=== PATIENT | female | born 1990 | race Caucasian/White ===

== ENCOUNTER 2017-01-05 23:40 | Emergency (ER) | payer OTHER ==
[~2017-01-05] VITALS: Ht 167.6 cm; Wt 54.4 kg
[~2017-01-05 23:40] MED LIST: ABILIFY20 MG PO; ADDERALL XR20 MG PO; ALBUTEROL0.09 MG/A2 IH; ALBUTEROL2.5 MG/0.5 INH; AMOXICILLIN500 M3 PO; ATARAX25 MG PO; BACTRIM DS 8001 TA1 PO; CEPHALEXIN500 M1 PO; CLARITIN10 MG PO; CLEOCIN HCL300 MG PO; CLINDAMYCIN HC300 MG PO; DARVOCET-N 1001 TA1 PO; DAYPRO600 M1 PO; DIFLUCAN150 MG PO; HYDROCODONE BIT1 T11 PO; KEFLEX500 MG PO; LEXAPRO10 MG PO; MEDROL DOSEPAK4 MG PO; MOTRIN400 MG PO; MOTRIN800 MG PO; NKHM; NORCO 325 MG-51 TAB PO; PEN-VK500 MG PO; PENICILLIN VK500 MG PO; PERIDEX 480 ML480 ML PO; PREDNISONE10 MG PO; ROBAXIN750 MG PO; ROBITUSSIN AC 110 ML PO; TRAMADOL HCL50 MG PO; ULTRAM50 MG PO; VENTOLIN H0.09 MG/AC INH; ZITHROMAX Z PA250 MG PO; ZOFRAN ODT4 MG SL
== END 2017-01-06 01:37 | disposition home or self-care (01) ==
LOC: ED 23:40
DX: S00.83XA Contusion of other part of head, initial encounter (principal); S30.0XXA Contusion of lower back and pelvis, initial encounter; S00.411A Abrasion of right ear, initial encounter; F17.200 Nicotine dependence, unspecified, uncomplicated; Z98.51 Tubal ligation status; Z79.899 Other long term (current) drug therapy; Y04.0XXA Assault by unarmed brawl or fight, initial encounter; Y93.89 Activity, other specified; Y92.89 Other specified places as the place of occurrence of the external cause; Y99.9 Unspecified external cause status

== ENCOUNTER 2017-08-27 14:20 | Emergency (ER) | payer OTHER ==
[~2017-08-27] VITALS: Ht 167.6 cm; Wt 54.4 kg
[2017-08-27 14:52] LABS: BASO # 0.1 10*3/uL (0.0-0.1); EOS # 0.2 10*3/uL (0.0-0.4); EOS % 2.1 % (1.0-4.0); HEMATOCRIT 42.5 % (37.0-47.0); LYMPH % 32.8 % (27.0-41.0); MEAN CELL VOLUME 94.4 fl (81.0-99.0); MEAN CORPUSCULAR HGB 31.1 pg (27.0-31.0); MEAN CORPUSCULAR HGB CONC 32.9 g/dl (33.0-37.0); MEAN PLATELET VOLUME 8.6 fl (9.6-12.3); MONO # 0.7 10*3/uL (0.1-1.0); MONO % 7.1 % (3.0-9.0); NEUT # 5.2 10*3/uL (2.3-7.9); NEUT % 56.8 % (47.0-73.0); PLATELET COUNT AUTOMATED 361 10*3/uL (130-400); RED CELL DISTRI WIDTH 12.6 % (0-14.5); WHITE BLOOD COUNT 9.2 10*3/uL (4.8-10.8)
[2017-08-27 15:02] LABS: BILIRUBIN NEGATIVE (NEGATIVE); BLOOD NEGATIVE (NEGATIVE); CLARITY SL CLOUDY (CLEAR); COLOR YELLOW (YELLOW); GLUCOSE NEGATIVE (NEGATIVE); KETONE TRACE (NEGATIVE); LEUKO ESTERASE NEGATIVE (NEGATIVE); NITRITE NEGATIVE (NEGATIVE); PH 5.5 (5.0-9.0); SPECIFIC GRAVITY >= 1.030 (1.005-1.030); UROBILINOGEN 0.2 E.U./dl (0.2-1.0)
[2017-08-27 15:06] LABS: ALBUMIN 4.3 gm/dl (3.1-4.5); ALKALINE PHOSPHATASE 69 U/L (45-117); BUN 13 mg/dl (7-24); CHLORIDE 106 mmol/L (98-107); CREATININE 0.92 mg/dL (0.55-1.02); POTASSIUM 3.8 mmol/L (3.5-5.1); SGOT/AST 9 IU/L (3-35); SGPT/ALT 16 U/L (12-78); SODIUM 140 mmol/L (136-145); TOTAL PROTEIN 8.2 gm/dL (6.4-8.2)
[2017-08-27] MEDS ORDERED: ZOFRAN ODT4 MG SL (15:18)
[2017-08-27 15:24] LABS: BACTERIA TRACE
== END 2017-08-27 15:32 | disposition home or self-care (01) ==
LOC: ED 14:20
PROVIDERS: Nurse Practitioner Family
DX: A08.4 Viral intestinal infection, unspecified (principal); Z79.899 Other long term (current) drug therapy

== ENCOUNTER 2018-04-22 23:25 | Emergency (ER) | payer OTHER ==
[~2018-04-22] VITALS: Ht 157.4 cm; Wt 61.2 kg
[2018-04-22 23:58] LABS: BASO # 0.1 10*3/uL (0.0-0.1); BASO % 0.4 % (0.0-1.0); EOS % 0.1 % (1.0-4.0); HEMATOCRIT 37.3 % (37.0-47.0); LYMPH % 15.1 % (27.0-41.0); MEAN CELL VOLUME 94.2 fl (81.0-99.0); MEAN CORPUSCULAR HGB 32.8 pg (27.0-31.0); MEAN CORPUSCULAR HGB CONC 34.9 g/dl (33.0-37.0); MEAN PLATELET VOLUME 8.8 fl (9.6-12.3); MONO # 0.9 10*3/uL (0.1-1.0); NEUT # 10.3 10*3/uL (2.3-7.9); NEUT % 77.1 % (47.0-73.0); PLATELET COUNT AUTOMATED 324 10*3/uL (130-400); RED BLOOD COUNT 3.96 10*6/uL (4.10-5.10); RED CELL DISTRI WIDTH 12.1 % (0-14.5); WHITE BLOOD COUNT 13.3 10*3/uL (4.8-10.8)
[2018-04-23 00:13] LABS: ALBUMIN 3.8 gm/dl (3.1-4.5); ALKALINE PHOSPHATASE 76 U/L (45-117); BUN 13 mg/dl (7-24); CHLORIDE 104 mmol/L (98-107); CREATININE 0.66 mg/dL (0.55-1.02); POTASSIUM 3.6 mmol/L (3.5-5.1); SGOT/AST 13 IU/L (3-35); SGPT/ALT 20 U/L (12-78); SODIUM 137 mmol/L (136-145); TOTAL PROTEIN 7.9 gm/dL (6.4-8.2)
[2018-04-23] MEDS ORDERED: Motrin,Rufen800 MG PO (00:51)
[2018-04-23] MEDS ORDERED: ULTRAM50 MG PO (00:51)
== END 2018-04-23 00:57 | disposition home or self-care (01) ==
LOC: ED 23:25
PROVIDERS: Emergency Medicine Emergency Medical Services
DX: S22.32XA Fracture of one rib, left side, initial encounter for closed fracture (principal); S00.432A Contusion of left ear, initial encounter; S00.83XA Contusion of other part of head, initial encounter; M25.511 Pain in right shoulder; M25.512 Pain in left shoulder; M54.9 Dorsalgia, unspecified; M25.531 Pain in right wrist; M25.532 Pain in left wrist; M79.642 Pain in left hand; Z79.899 Other long term (current) drug therapy; Y08.89XA Assault by other specified means, initial encounter; Y93.89 Activity, other specified; Y92.89 Other specified places as the place of occurrence of the external cause; Y99.8 Other external cause status

== ENCOUNTER 2019-01-25 23:46 | Emergency (ER) | payer OTHER ==
[~2019-01-25] VITALS: Ht 167.6 cm; Wt 68.0 kg
[~2019-01-25 23:46] MED LIST changes: +AMOXICILLIN500 M2 PO; +CYCLOBENZAPRINE5 M3 PO; +Motrin,Rufen800 MG PO; +SEPTDS PO
[2019-01-26] MEDS ORDERED: DIFLUCAN150 MG PO (00:12)
== END 2019-01-26 00:17 | disposition home or self-care (01) ==
LOC: ED 23:46
DX: L02.214 Cutaneous abscess of groin (principal); L02.415 Cutaneous abscess of right lower limb; F17.210 Nicotine dependence, cigarettes, uncomplicated; J45.909 Unspecified asthma, uncomplicated

== ENCOUNTER 2019-01-27 08:30 | Inpatient (IN) | payer OTHER ==
[~2019-01-27] VITALS: Ht 167.6 cm; Wt 68.0 kg
[2019-01-27 08:33] VITALS: BP 106/83
[2019-01-27 09:50] LABS: BASO # 0.1 10*3/uL (0.0-0.1); BASO % 0.5 % (0.0-1.0); EOS # 0.2 10*3/uL (0.0-0.4); EOS % 1.6 % (1.0-4.0); HEMOGLOBIN 13.6 g/dl (12.0-16.0); LYMPH # 2.3 10*3/uL (1.3-4.4); LYMPH % 17.2 % (27.0-41.0); MEAN CELL VOLUME 95.3 fl (81.0-99.0); MEAN CORPUSCULAR HGB 31.6 pg (27.0-31.0); MEAN CORPUSCULAR HGB CONC 33.2 g/dl (33.0-37.0); MEAN PLATELET VOLUME 8.7 fl (9.6-12.3); MONO # 0.8 10*3/uL (0.1-1.0); MONO % 6.3 % (3.0-9.0); NEUT # 9.8 10*3/uL (2.3-7.9); PLATELET COUNT AUTOMATED 332 10*3/uL (130-400); WHITE BLOOD COUNT 13.3 10*3/uL (4.8-10.8)
[2019-01-27 10:06] LABS: ALBUMIN 3.7 gm/dl (3.1-4.5); ALKALINE PHOSPHATASE 64 U/L (45-117); BUN 10 mg/dl (7-24); CHLORIDE 107 mmol/L (98-107); CREATININE 0.74 mg/dL (0.55-1.02); POTASSIUM 4.2 mmol/L (3.5-5.1); SGOT/AST 11 IU/L (3-35); SGPT/ALT 18 U/L (12-78); SODIUM 136 mmol/L (136-145); TOTAL PROTEIN 7.2 gm/dL (6.4-8.2)
[2019-01-27 10:08] LABS: BETA-HCG, QUANT < 1.0 mIU/mL (1-3)
--- NOTE | 2019-01-27 11:20 | NUR ---
PATIENT ABSCESS IS 2 1/2-3CM IN DIAMETER AND THE ERRYTHEMA MAKES AREA ABOUT 6 CM IN DIAMETER. NOT OPEN AT THIS TIME. RAISED AREA.
--- NOTE | 2019-01-27 11:35 | NUR ---
PATIENT TAKEN TO FLOOR BY THIS NURSE. BEDSIDE REPORT GIVEN TO TYRONE ESTEBAN AT THIS TIME.
--- NOTE | 2019-01-27 11:45 | NUR ---
A 28, admitted to , under the services of CRISTY Sutherland DO with a diagnosis of SEPSIS. CELLULITIS OR ABSCESS OF GROIN. Chief complaint is PAIN. Patient arrived via BED from ER. Monitor applied. Initial assessment completed. Vital signs taken and recorded. CRISTY SUTHERLAND DO notified of admission to the unit. Orders received. See assessment for past medical history, medications and allergies. Patient and/or family oriented to unit. [address] visitation policy reviewed. Clothing/patient valuable form completed. TYRONE POON
--- NOTE | 2019-01-27 11:55 | NUR ---
PT DECLINES FLU VACCINATION
[2019-01-27 12:00] VITALS: BP 100/55
--- NOTE | 2019-01-27 12:06 | NUR ---
NOTIFIED DR BOR THAT PT IS IN HER ROOM
--- NOTE | 2019-01-27 13:26 | NUR ---
SPOKE TO DR HYMAN REGARDING NEW PT CONSULT. HE WILL SEE PT LATER TODAY
--- NOTE | 2019-01-27 13:37 | NUR ---
PT REQEUSTING NICOTINE INHALER. DR BRO NOTIIFED. ORDER RECEIVED
[2019-01-27 16:00] VITALS: BP 108/57
--- NOTE | 2019-01-27 19:45 | NUR ---
PATIENT LAYING IN BED VISITING FAMILY AT TIME OF BEDSIDE REPORT. IV FLUIDS INFUSING PER ORDER TO LAC. LUNGS CLEAR THROUGHOUT. BS NORMOACTIVE X4. NO OTHER NEEDS AT THIS TIME PER PATIENT. CALL LIGHT WITHIN REACH.
[2019-01-27 20:00] VITALS: BP 103/58
--- NOTE | 2019-01-27 21:19 | NUR ---
PATIENT MEDICATED WITH PRN NORCO FOR C/O 8/10 PAIN TO HER RIGHT THIGH/GROIN AREA. WILL MONITOR FOR EFFECTIVENESS.
--- NOTE | 2019-01-27 22:00 | NUR ---
PER PATIENT PRN NORCO EFFECTIVE.
--- NOTE | 2019-01-27 23:53 | NUR ---
24 HR chart check completed.
[2019-01-28] VITALS: BP 92/46
--- NOTE | 2019-01-28 01:08 | NUR ---
PATIENT MEDICATED WITH PRN NORCO FOR C/O 5/10 PAIN IN HER RIGHT THIGH/GROIN. WILL MONITOR FOR EFFECTIVENESS.
--- NOTE | 2019-01-28 02:00 | NUR ---
PATIENT ASLEEP IN BED. PRN NORCO EFFECTIVE.
--- NOTE | 2019-01-28 05:26 | NUR ---
PATIENT MEDICATED WITH PRN NORCO FOR C/O 4/10 PAIN IN HER RIGHT THIGH/GROIN. WILL MONITOR FOR EFFECTIVENESS.
--- NOTE | 2019-01-28 05:41 | NUR ---
CALVIN LANDERS [id number] Please refer to the physician's history and physical for past medical history, comorbid conditions, and allergies. Diagnosis: SEPSIS ABSCESS OR CELLULITIS OF GROIN Zak Score: 22,LOW OR NO RISK WOUND DESCRIPTIONS: Wound Number: 1 Location of the wound: Right upper thigh Thickness: Partial Size: 1.7cm x 1.1cm x 0.2cm Tunneling: none Undermining: none Sinus Tract: none Presence of Exudate: Serosanguineous Amount: Light Color: Red Odor: None Periwound Skin Appearance: Erythema Wound edges: approximated Pain (associated with wound): tender to touch How does patient state this happened? pt stated this started 7 days ago as a swollen bump and it started draining yesterday. she stated she will follow up in the wound care center and is reguesting to follow up with Dr. Danielle next . Surface the patient is resting on: Isoflex SKIN PREVENTION RECOMMENDATION: 1. Pressure redistribution support surface as appropriate 2. Elevate heels 3. Remove boots/TEDS every shift and reapply 4. Head of bed 30 degrees as tolerated 5. Assess nutrition and hydration 6. Manage moisture 7. Avoid the use of containment devices while in bed 8. Use absorptive products on surfaces limit layers of linens on bed 9. Turn and reposition every 1-2 hours in bed and every 1 hour in chair as tolerated 10. Weight shifts every 15 minutes while up in chair 11. Offloading with pillows or device to keep heels elevated off bed 12. Monitor skin at least every shift 13. Inspect under medical devices twice a day WOUND TREATMENT RECOMMENDATIONS: Continue dressing order per Dr. Danielle.
[2019-01-28 06:14] LABS: BASO # 0.1 10*3/uL (0.0-0.1); BASO % 0.6 % (0.0-1.0); EOS # 0.2 10*3/uL (0.0-0.4); EOS % 2.7 % (1.0-4.0); HEMATOCRIT 36.9 % (37.0-47.0); LYMPH # 2.8 10*3/uL (1.3-4.4); LYMPH % 32.9 % (27.0-41.0); MEAN CELL VOLUME 97.1 fl (81.0-99.0); MEAN CORPUSCULAR HGB 31.6 pg (27.0-31.0); MEAN CORPUSCULAR HGB CONC 32.5 g/dl (33.0-37.0); MEAN PLATELET VOLUME 9.2 fl (9.6-12.3); MONO # 0.6 10*3/uL (0.1-1.0); MONO % 7.5 % (3.0-9.0); NEUT # 4.7 10*3/uL (2.3-7.9); NEUT % 56.1 % (47.0-73.0); PLATELET COUNT AUTOMATED 311 10*3/uL (130-400); RED CELL DISTRI WIDTH 13.1 % (0-14.5); WHITE BLOOD COUNT 8.4 10*3/uL (4.8-10.8)
--- NOTE | 2019-01-28 06:20 | NUR ---
PRN NORCO EFFECTIVE PER PATIENT.
[2019-01-28 06:41] LABS: CHLORIDE 111 mmol/L (98-107); POTASSIUM 4.3 mmol/L (3.5-5.1); SODIUM 139 mmol/L (136-145)
[2019-01-28 06:54] LABS: ALBUMIN 2.9 gm/dl (3.1-4.5); ALKALINE PHOSPHATASE 56 U/L (45-117); BUN 13 mg/dl (7-24); CHOLESTEROL 115 mg/dL (<200); CREATININE 0.66 mg/dL (0.55-1.02); FREE T4 1.07 ng/dl (0.76-1.46); HDL CHOLESTEROL 48 mg/dl (40-60); LDL CHOLESTEROL 56 mg/dL (9-159); PHOSPHOROUS 2.2 mg/dL (2.5-4.9); SGOT/AST 10 IU/L (3-35); SGPT/ALT 15 U/L (12-78); TRIGLYCERIDES 56 mg/dl (<150); VLDL CHOLESTEROL 11 mg/dL (6-40)
[2019-01-28 07:21] LABS: VITAMIN D, 25-HYDROXY 32.1 ng/mL (30-100)
[2019-01-28 08:00] VITALS: BP 100/52
--- NOTE | 2019-01-28 09:00 | NUR ---
Medical Billing Specialist in to talk to patient. Patient states lives at home with and children. There are few steps in the home. Physician: héctor yanes [facility]acy: [facility] health services: none Patient's level of ADLs: INDEPENDENT Patient has working utilities: all working DME: none Follow-up physician's appointment after d/c: will be made by hospitalist nurse director upon discharge Does patient want to access PORTAL?: no Discharge plan discussed with patient, she states she lives at home with and children she is independent in adls and ambulation she states she will return home when medically stable and denies any home needs. SHANNON ARVIZU
[2019-01-28 12:00] VITALS: BP 119/73
--- NOTE | 2019-01-28 14:23 | NUR ---
Nutritional Support Services Note: Pt with Dx of sepsis, abscess of groin, dental caries, bipolar depression. She receives a regular diet as ordered with Ensure po TID with meals. Appetite is good for meals, eating 100%. No other nutrition intervention needed at this time. Will follow as needed. Nubia Saenz Rdn Ld
[2019-01-28 16:00] VITALS: BP 103/56
--- NOTE | 2019-01-28 16:20 | NUR ---
PT C/O RIGHT LEG PAIN RATING 5/10 PRN NORCO GIVEN PER ORDER
[2019-01-28 20:00] VITALS: BP 103/59
--- NOTE | 2019-01-28 22:10 | NUR ---
PATIENT MEDICATED WITH NORCO AND RESTORIL PER PRN ORDER FOR C/O BURNING IN RT GROIN AND INABILITY TO SLEEP. SEE EMAR. RATED DISCOMFORT A 5/10 WITH 10 BEING THE WORST. REINFORCED USE OF CALL LIGHT.
[2019-01-29] VITALS: BP 99/51
--- NOTE | 2019-01-29 04:15 | NUR ---
PATIENT MEDICATED WITH NORCO FOR C/O BURNING IN RIGHT GROIN. RATED PAIN A 6/10 WITH 10 BEING THE WORST. SEE EMAR. REINFORCED USE OF CALL LIGHT.
[2019-01-29 08:00] VITALS: BP 101/60
--- NOTE | 2019-01-29 10:08 | NUR ---
NORCO GIVEN FOR C/O RT GROIN ABCESS PAIN. WILL MONITOR.
[2019-01-29] MEDS ORDERED: NORCO 5-325 TA1 EACH PO (11:33)
[2019-01-29] MEDS ORDERED: AUGMENTIN 875-875 MG PO (11:33)
--- NOTE | 2019-01-29 11:42 | NUR ---
[facility] Discharge instructions reviewed with patient/family. Patient receptive and verbalizes understanding. Follow-up care arranged. Written instructions given to patient/family. MARIBEL PARK
== END 2019-01-29 11:41 | disposition home or self-care (01) | DRG 720 ==
LOC: ED 08:30 → EDHOLD 10:42 → 4E 10:42
PROVIDERS: Emergency Medicine; Internal Medicine; ADMIT Internal Medicine
DX: A41.9 Sepsis, unspecified organism (principal); L73.9 Follicular disorder, unspecified; E44.0 Moderate protein-calorie malnutrition; L02.415 Cutaneous abscess of right lower limb; L03.115 Cellulitis of right lower limb; F17.210 Nicotine dependence, cigarettes, uncomplicated; E87.8 Other disorders of electrolyte and fluid balance, not elsewhere classified; Z71.6 Tobacco abuse counseling; Z98.51 Tubal ligation status; Z83.3 Family history of diabetes mellitus; Z80.8 Family history of malignant neoplasm of other organs or systems; Z79.899 Other long term (current) drug therapy; Z68.24 Body mass index [BMI] 24.0-24.9, adult

== ENCOUNTER 2019-06-22 20:26 | Emergency (ER) | payer OTHER ==
[~2019-06-22 20:26] MED LIST changes: +AUGMENTIN 875-875 MG PO; +NORCO 5-325 TA1 EACH PO
[2019-06-22 21:22] LABS: BASO # 0.1 10*3/uL (0.0-0.1); BASO % 0.7 % (0.0-1.0); EOS # 0.2 10*3/uL (0.0-0.4); HEMATOCRIT 39.9 % (37.0-47.0); HEMOGLOBIN 13.5 g/dl (12.0-16.0); LYMPH # 4.1 10*3/uL (1.3-4.4); LYMPH % 38.2 % (27.0-41.0); MEAN CORPUSCULAR HGB 32.1 pg (27.0-31.0); MEAN CORPUSCULAR HGB CONC 33.8 g/dl (33.0-37.0); MEAN PLATELET VOLUME 8.9 fl (9.6-12.3); MONO # 0.7 10*3/uL (0.1-1.0); MONO % 6.8 % (3.0-9.0); NEUT # 5.6 10*3/uL (2.3-7.9); NEUT % 52.1 % (47.0-73.0); PLATELET COUNT AUTOMATED 339 10*3/uL (130-400); RED CELL DISTRI WIDTH 13.1 % (0-14.5); WHITE BLOOD COUNT 10.7 10*3/uL (4.8-10.8)
[2019-06-22 21:43] LABS: ALBUMIN 3.8 gm/dl (3.1-4.5); ALKALINE PHOSPHATASE 65 U/L (45-117); BUN 14 mg/dl (7-24); CHLORIDE 109 mmol/L (98-107); CREATININE 0.83 mg/dL (0.55-1.02); POTASSIUM 3.8 mmol/L (3.5-5.1); SGOT/AST 12 IU/L (3-35); SGPT/ALT 19 U/L (12-78); SODIUM 138 mmol/L (136-145); TOTAL PROTEIN 7.2 gm/dL (6.4-8.2)
[2019-06-22] MEDS ORDERED: CEPHALEXIN500 M1 PO (22:35)
[2019-06-22] MEDS ORDERED: SEPTDS PO (22:35)
[2019-06-22] MEDS ORDERED: DIFLUCAN150 MG PO (22:47)
== END 2019-06-22 20:55 | disposition home or self-care (01) ==
LOC: ED 20:26
PROVIDERS: Physician Assistant
DX: L02.214 Cutaneous abscess of groin (principal); J45.909 Unspecified asthma, uncomplicated; R56.9 Unspecified convulsions; F31.9 Bipolar disorder, unspecified; F17.200 Nicotine dependence, unspecified, uncomplicated; Z79.899 Other long term (current) drug therapy

== ENCOUNTER 2020-10-25 13:40 | Emergency (ER) | payer OTHER ==
[2020-10-25] MEDS ORDERED: DIFLUCAN150 MG PO (14:33)
[2020-10-25] MEDS ORDERED: AUGMENTIN 875875 MG PO (14:33)
== END 2020-10-25 14:56 | disposition home or self-care (01) ==
LOC: ED 13:40
DX: S61.241A Puncture wound with foreign body of left index finger without damage to nail, initial encounter (principal); F17.210 Nicotine dependence, cigarettes, uncomplicated; Z79.2 Long term (current) use of antibiotics; Z79.899 Other long term (current) drug therapy; Z98.51 Tubal ligation status; X58.XXXA Exposure to other specified factors, initial encounter; Y93.89 Activity, other specified; Y92.89 Other specified places as the place of occurrence of the external cause; Y99.8 Other external cause status

== ENCOUNTER 2020-11-18 17:45 | Emergency (ER) | payer OTHER ==
[~2020-11-18 17:45] MED LIST changes: +AUGMENTIN 875875 MG PO
== END 2020-11-18 18:15 | disposition left against medical advice (07) ==
LOC: ED 17:45
DX: K08.89 Other specified disorders of teeth and supporting structures (principal); Z53.21 Procedure and treatment not carried out due to patient leaving prior to being seen by health care provider

== ENCOUNTER 2021-04-26 17:50 | Emergency (ER) | payer OTHER ==
[~2021-04-26] VITALS: Wt 74.8 kg
== END 2021-04-26 20:16 | disposition home or self-care (01) ==
LOC: ED 17:50
DX: K13.79 Other lesions of oral mucosa (principal); F17.210 Nicotine dependence, cigarettes, uncomplicated; Z98.51 Tubal ligation status

== ENCOUNTER 2021-08-29 15:58 | Emergency (ER) | payer OTHER ==
[~2021-08-29] VITALS: Wt 75.7 kg
[2021-08-29 19:02] LABS: HEMATOCRIT 44.7 % (37.0-47.0); MEAN CELL VOLUME 91.4 fl (81.0-99.0); MEAN CORPUSCULAR HGB 31.5 pg (27.0-31.0); MEAN CORPUSCULAR HGB CONC 34.5 g/dl (33.0-37.0); MEAN PLATELET VOLUME 9.5 fl (9.6-12.3); PLATELET COUNT AUTOMATED 160 10*3/uL (130-400); RED BLOOD COUNT 4.89 10*6/uL (4.10-5.10); RED CELL DISTRI WIDTH 12.7 % (0-14.5); WHITE BLOOD COUNT 3.1 10*3/uL (4.8-10.8)
[2021-08-29 19:06] LABS: MANUAL DIFF REFLEX YES
[2021-08-29 19:20] LABS: BUN 7 mg/dl (7-24); CHLORIDE 105 mmol/L (98-107); CREATININE 0.74 mg/dL (0.55-1.02); POTASSIUM 3.8 mmol/L (3.5-5.1); SGOT/AST 205 IU/L (3-35); SGPT/ALT 191 U/L (12-78); SODIUM 136 mmol/L (136-145); TOTAL PROTEIN 7.4 gm/dL (6.4-8.2)
[2021-08-29 19:21] LABS: ALKALINE PHOSPHATASE 133 U/L (45-117)
[2021-08-29 19:32] LABS: PLATELET SUFFICIENCY NORMAL (NORMAL); POLYCHROMASIA SLIGHT; TOTAL CELLS COUNTED 100 #CELLS
[2021-08-29 19:42] LABS: BILIRUBIN Negative (Negative); BLOOD Negative (Negative); CLARITY Clear (Clear); COLOR Dark Yellow (Yellow); GLUCOSE Negative (Negative); KETONE Trace (Negative); LEUKO ESTERASE Negative (Negative); NITRITE Negative (Negative); PH 5.5 (4.5-8.0); SPECIFIC GRAVITY 1.025 (1.001-1.030)
[2021-08-29 19:54] LABS: MUCOUS TRACE
== END 2021-08-29 22:11 | disposition left against medical advice (07) ==
LOC: ED 15:58
PROVIDERS: Nurse Practitioner Family
DX: Z76.5 Malingerer [conscious simulation] (principal)

== ENCOUNTER 2023-01-07 09:23 | Emergency (ER) | payer OTHER ==
[~2023-01-07] VITALS: Ht 167.6 cm; Wt 67.1 kg
[2023-01-07] MEDS ORDERED: PREDNISONE50 MG PO (09:54)
[2023-01-07] MEDS ORDERED: HYDROCODONE-AC1 EAC1 PO (10:13)
== END 2023-01-07 10:06 | disposition home or self-care (01) ==
LOC: ED 09:23
DX: M70.22 Olecranon bursitis, left elbow (principal); F90.9 Attention-deficit hyperactivity disorder, unspecified type; F31.9 Bipolar disorder, unspecified; J45.909 Unspecified asthma, uncomplicated; Z98.51 Tubal ligation status; F17.210 Nicotine dependence, cigarettes, uncomplicated; Y93.89 Activity, other specified

== ENCOUNTER 2023-08-02 17:32 | Emergency (ER) | payer OTHER ==
[~2023-08-02] VITALS: Ht 167.6 cm; Wt 71.2 kg
[~2023-08-02 17:32] MED LIST changes: +HYDROCODONE-AC1 EAC1 PO; +PREDNISONE50 MG PO
[2023-08-02] MEDS ORDERED: CEPHALEXIN500 M1 PO (17:58)
[2023-08-02] MEDS ORDERED: FLUCONAZOLE 150 MG TAB PO ONE (18:00)
[2023-08-02] MEDS ORDERED: CEPHALEXIN 500 MG CAP PO ONE (18:00)
== END 2023-08-02 18:22 | disposition home or self-care (01) ==
LOC: ED 17:32
DX: L03.116 Cellulitis of left lower limb (principal); E78.00 Pure hypercholesterolemia, unspecified; F90.9 Attention-deficit hyperactivity disorder, unspecified type; F31.9 Bipolar disorder, unspecified; F17.210 Nicotine dependence, cigarettes, uncomplicated

== ENCOUNTER 2023-09-17 17:26 | Emergency (ER) | payer OTHER ==
[~2023-09-17] VITALS: Ht 167.6 cm; Wt 65.8 kg
[2023-09-17] MEDS ORDERED: Bacitracin Zinc 14 GM TUBE T ONE (18:30)
== END 2023-09-17 19:22 | disposition home or self-care (01) ==
LOC: ED 17:26
DX: S91.312A Laceration without foreign body, left foot, initial encounter (principal); J45.909 Unspecified asthma, uncomplicated; F90.9 Attention-deficit hyperactivity disorder, unspecified type; F31.9 Bipolar disorder, unspecified; F17.210 Nicotine dependence, cigarettes, uncomplicated; Z98.51 Tubal ligation status; W22.8XXA Striking against or struck by other objects, initial encounter; Y93.11 Activity, swimming; Y92.89 Other specified places as the place of occurrence of the external cause; Y99.8 Other external cause status

== ENCOUNTER 2024-11-19 19:44 | Emergency (ER) | payer BC ==
[~2024-11-19] VITALS: Ht 167.6 cm; Wt 88.5 kg
[2024-11-19] MEDS ORDERED: Bacitracin Zinc 14 GM TUBE T ONE (20:25)
== END 2024-11-19 20:52 | disposition home or self-care (01) ==
LOC: ED 19:44
DX: T21.21XA Burn of second degree of chest wall, initial encounter (principal); F17.210 Nicotine dependence, cigarettes, uncomplicated; Z79.899 Other long term (current) drug therapy; X10.0XXA Contact with hot drinks, initial encounter; Y93.89 Activity, other specified; Y92.89 Other specified places as the place of occurrence of the external cause; Y99.8 Other external cause status